=== PATIENT | female | born 1990 | race Caucasian/White ===

== ENCOUNTER 2023-05-10 17:00 | Emergency (ER) | payer OTHER ==
[~2023-05-10] VITALS: Ht 170.2 cm; Wt 63.4 kg
[2023-05-10 17:10] VITALS: BP 139/104; PULSE 78; RESP 18; TEMP 98.4; O2SAT 96
== END 2023-05-10 19:55 | disposition home or self-care (01) ==
LOC: ER 17:00
DX: S61.217A Laceration without foreign body of left little finger without damage to nail, initial encounter (principal); W26.0XXA Contact with knife, initial encounter; Y93.89 Activity, other specified; Y92.89 Other specified places as the place of occurrence of the external cause; Y99.8 Other external cause status
CPT/HCPCS: 12001; 99282